=== PATIENT | female | born 1980 | race American Indian/Alaskan Native ===

== ENCOUNTER 2018-08-30 10:06 | Inpatient (IN) | payer OTHER ==
--- NOTE | 2018-08-30 10:30 | C.PDOC ---
History Of Present Illness 38 year old female presents to ED with complaint of persistent hemorrhoid pain for the past 2 weeks. Patient denies bleeding, bloody stools, or constipation. PERSIST HEMORRHOID PAIN X 2 WEEKS. NO BLEED. NO OTHER ASSOC SX EXAM RECTAL DEFERRED DR MARCANO REMAINDER NEG MDM FOR HEMORRHOIDECTOMY DR MARCANO TODAY. PER REFERRAL NOTE, ADMIT TO DR MARCANO Time Seen by Provider: 08/30/18 10:24 Chief Complaint (Nursing): Medical Clearance History Per: Patient History/Exam Limitations: no limitations Onset/Duration Of Symptoms: Other (2 weeks) Current Symptoms Are (Timing): Still Present Past Medical History Reviewed: Historical Data, Nursing Documentation, Vital Signs Vital Signs: Last Vital Signs Temp 98.3 F 08/30/18 10:18 Pulse 79 08/30/18 10:18 Resp 20 08/30/18 10:18 BP 120/74 08/30/18 10:18 Pulse Ox 100 08/30/18 10:18 Primary Care Provider: Ryley Marcano - Medical History PMH: No Chronic Diseases Surgical History: No Surg Hx Family History: States: Unknown Family Hx - Social History Hx Alcohol Use: No Hx Substance Use: No - Immunization History Hx Tetanus Toxoid Vaccination: No Hx Influenza Vaccination: No Hx Pneumococcal Vaccination: No Review Of Systems Except As Marked, All Systems Reviewed And Found Negative. Gastrointestinal: Positive for: Rectal Pain (hemorrhoid pain) Physical Exam - Physical Exam Appears: Well, Non-toxic, No Acute Distress Skin: Normal Color, Warm, Dry Head: Atraumatic, Normacephalic Eye(s): bilateral: Normal Inspection, PERRL, EOMI Neck: Normal ROM, Supple Chest: Symmetrical, No Deformity Cardiovascular: Rhythm Regular, No Murmur Respiratory: No Accessory Muscle Use, No Rales, No Rhonchi, No Wheezing Gastrointestinal/Abdominal: Soft, No Tenderness, No Distention, No Guarding, No Rebound Rectal: Deferred () Extremity: Capillary Refill (<2 seconds) Extremity: Bilateral: Atraumatic, Normal Color And Temperature, Normal ROM Pulses: Left Radial: Normal, Right Radial: Normal Neurological/Psych: Oriented x3, Normal Speech, Normal Cognition ED Course And Treatment - Laboratory Results Result Diagrams: 08/30/18 10:59 08/30/18 10:59 ECG: Interpreted By Me, Viewed By Me ECG Rhythm: Sinus Rhythm ECG Interpretation: Normal Rate From EC O2 Sat by Pulse Oximetry: 100 (in RA) Pulse Ox Interpretation: Normal - Radiology CXR: Interpreted by Me, Viewed By Me CXR Interpretation: Yes: No Acute Disease Nexus Criteria: Negative Progress Note: Type and screen, CMP, CBC, U-preg, and UA ordered for patient. EKG and CXR ordered for patient. Patient given IV fluids. Medical Decision Making Medical Decision Making: Patient to be admitted for hemorrhoidectomy today by . Per referral note, patient to be admitted to Dr. Marcano. Disposition Counseled Patient/Family Regarding: Studies Performed, Diagnosis - Disposition Disposition: HOSPITALIZED Disposition Time: 10:25 Condition: STABLE - Clinical Impression Clinical Impression: Hemorrhoids - Scribe Statement The provider has reviewed the documentation as recorded by the Scribe (Shelia Thayer) All medical record entries made by the Scribe were at my direction and personally dictated by me. I have reviewed the chart and agree that the record accurately reflects my personal performance of the history, physical exam, medical decision making, and the department course for this patient. I have also personally directed, reviewed, and agree with the discharge instructions and disposition.
[2018-08-30] MEDS ORDERED: Sodium Chloride 0.9% 1,000 ML IV ONE (10:31)
[2018-08-30] MEDS ORDERED: Sodium Chloride 0.9% 1,000 ML ONE (11:04)
[2018-08-30 11:07] LABS: BASO % 1.2 % (0.0-2.0); EOS # 0.1 K/uL (0.0-0.7); EOS % 2.2 % (0.0-4.0); HEMOGLOBIN 14.7 g/dL (11.0-16.0); LYMPH % 50.9 % (20.0-40.0); MEAN CELL VOLUME 91.5 fL (81.0-99.0); MEAN CORPUSCULAR HEMOGLOBIN 31.5 pg (27.0-31.0); MEAN CORPUSCULAR HGB CONC 34.4 g/dL (33.0-37.0); MEAN PLATELET VOLUME 8.5 fL (7.2-11.7); MONO # 0.5 K/uL (0.0-0.8); MONO % 12.9 % (0.0-10.0); NEUT # 1.3 K/uL (1.8-7.0); NEUT % 32.8 % (50.0-75.0); NRBC % 0.1 % (0.0-2.0); RBC 4.66 Mil/uL (3.80-5.20); RED CELL DISTRIBUTION WIDTH 12.7 % (11.5-14.5); WHITE BLOOD COUNT 3.9 K/uL (4.8-10.8)
[2018-08-30 11:10] LABS: HCG,QUALITATIVE URINE NEGATIVE (NEGATIVE)
[2018-08-30 11:14] LABS: INR 1.1; PARTIAL THROMBOPLASTIN TIME 28.7 SECONDS (21-34)
[2018-08-30 11:19] LABS: ALB/GLOB RATIO 1.2 (1.0-2.1); ALBUMIN 4.5 g/dL (3.5-5.0); BLOOD UREA NITROGEN 10 mg/dL (7-17); CALCIUM 9.4 mg/dl (8.6-10.4); GFR NON-AFRICAN AMERICAN > 60
[2018-08-30 11:20] LABS: SQUAMOUS EPITHIAL 1 /hpf (0-5); URINE BILIRUBIN NEGATIVE (NEGATIVE); URINE BLOOD 1+ (NEGATIVE); URINE CLARITY Clear (Clear); URINE COLOR Yellow (YELLOW); URINE GLUCOSE (UA) NORMAL (Normal); URINE LEUKOCYTE ESTERASE NEG Leu/uL (Negative); URINE PROTEIN NEGATIVE (NEGATIVE)
[2018-08-30 11:21] LABS: ALT/SGPT 10 U/L (9-52); AST/SGOT 22 U/L (14-36)
--- NOTE | 2018-08-30 11:33 | RAD ---
HISTORY: PREOP COMPARISON: None available TECHNIQUE: Chest PA and lateral, 2 views FINDINGS: LUNGS: No focal consolidation. Please note that chest x-ray has limited sensitivity for the detection of pulmonary masses. PLEURA: No significant pleural effusion identified. No definite pneumothorax . CARDIOVASCULAR: The cardiomediastinal silhouette appears within normal limits of size. No atherosclerotic calcification present. OSSEOUS STRUCTURES: No acute osseous abnormality identified. VISUALIZED UPPER ABDOMEN: Unremarkable. OTHER FINDINGS: None. IMPRESSION: No acute findings.
[2018-08-30] MEDS ORDERED: Bupivacaine 0.25% 20 ML INJ IJ ONE (15:11)
[2018-08-30] MEDS ORDERED: ceFAZolin 1 gm in NS 1 GM/100 ML BAG IVPB ONE (15:11)
[2018-08-30] MEDS ORDERED: Midazolam 2 MG/2 ML VIAL ONE (15:21)
[2018-08-30] MEDS ORDERED: Propofol 10 mg/ml Inj (20 ML) ONE (15:21)
[2018-08-30] MEDS ORDERED: Absorbable Gelatin Sponge Size 100 ONE (15:53)
[2018-08-30 17:53] VITALS: RESP 20
[2018-08-30] MEDS: Dextrose 5%/0.45% NS 1,000 ML IV SCH (20:03)
[2018-08-30] MEDS: Oxycodone/Acetaminophen 5/325 mg Tab PO PRN (20:17)
[2018-08-31] MEDS: Oxycodone/Acetaminophen 5/325 mg Tab PO PRN (01:19)
[2018-08-31] MEDS: Lactated Ringer's 1,000 ML IV SCH ×2 (02:15→11:52)
--- NOTE | 2018-08-31 06:57 | OP ---
PROCEDURE DATE: 08/30/2018 PREOPERATIVE DIAGNOSIS: Thrombosed, prolapsed bleeding hemorrhoids. POSTOPERATIVE DIAGNOSIS: Thrombosed, prolapsed bleeding hemorrhoids. PROCEDURE PERFORMED: 1. Complex hemorrhoidectomy. 2. Full-thickness transanal excision of rectal polyp with advancement flap closure. 3. Repair of rectal blood vessel. SURGEON: Ryley Boss MD ANESTHESIA: General. BLOOD LOSS: 40 mL. POSTOPERATIVE CONDITION: Stable. INDICATIONS FOR SURGERY: This is a 38-year-old female who presented to emergency room today with severe rectal pain, bleeding, and prolapsed ulcerated hemorrhoids. She is now taken to the operating room for emergency hemorrhoidectomy. DESCRIPTION OF PROCEDURE: The patient was taken to the operating room. General anesthesia was administered. She was placed in the prone jackknife position with the buttocks taped open. The rectal area was prepped and draped. An anoscopy was performed which revealed a complex right anterior hemorrhoid bundle which was ulcerated and prolapsed and actively bleeding. There was also a smaller bundle posteriorly. This was associated with a polyp just above the dentate line. The large complex right anterior hemorrhoid was grasped with a hemorrhoid clamp and ligated at its base with a heavy Monocryl suture. Generous elliptical incision was made completely surrounding the hemorrhoid and onto the anal skin. The hemorrhoid was dissected free and removed. Bleeding was controlled using the Bovie. The wound was repaired with double layer of a running heavy Monocryl suture. The above was repeated with the smaller hemorrhoid in the in the posterior quadrant. The polyp was then grasped with a adam clamp and a full-thickness excision was performed into the muscle. Bleeding was controlled using the Bovie. Tissue flaps were raised. Counter incisions were made and advancement flap closure was performed with heavy Monocryl, totaling 20 sq cm. During this resection, there was noted to be a pudendal blood vessel which was bleeding, it was mobilized and repaired with Prolene and blood flow confirmed by Doppler. The patient tolerated the procedure well. The anal canal was then packed with Gelfoam and an anal block of 0.25% Marcaine was placed. The patient tolerated the procedure well. Returned to recovery room in stable condition. Ryley Boss MD
[2018-08-31 07:36] VITALS: BP 127/79; PULSE 65; TEMP 98.3; O2SAT 98
[2018-08-31 08:10] LABS: BASO % 0.3 % (0.0-2.0); EOS # 0.1 K/uL (0.0-0.7); EOS % 0.8 % (0.0-4.0); HEMOGLOBIN 13.7 g/dL (11.0-16.0); LYMPH # 1.6 K/uL (1.0-4.3); LYMPH % 25.9 % (20.0-40.0); MEAN CELL VOLUME 90.7 fL (81.0-99.0); MEAN CORPUSCULAR HGB CONC 35.3 g/dL (33.0-37.0); MEAN PLATELET VOLUME 8.7 fL (7.2-11.7); MONO # 0.5 K/uL (0.0-0.8); MONO % 7.9 % (0.0-10.0); NEUT # 3.9 K/uL (1.8-7.0); NEUT % 65.1 % (50.0-75.0); RBC 4.27 Mil/uL (3.80-5.20); RED CELL DISTRIBUTION WIDTH 12.3 % (11.5-14.5)
[2018-08-31 08:23] LABS: ALB/GLOB RATIO 1.3 (1.0-2.1); ALBUMIN 4.1 g/dL (3.5-5.0); ALT/SGPT 17 U/L (9-52); AST/SGOT 28 U/L (14-36); BLOOD UREA NITROGEN 8 mg/dL (7-17); CALCIUM 8.8 mg/dl (8.6-10.4); GFR NON-AFRICAN AMERICAN > 60
[2018-08-31] MEDS: Dextrose 5%/0.45% NS 1,000 ML IV SCH (08:51)
[2018-08-31] MEDS ORDERED: Pneumococcal 23-Valent Vaccine IM ONE ×2 (10:00→12:00)
--- NOTE | 2018-09-01 14:24 | CARD ---
APPROVED REPORT Date of service: 08/30/2018 EKG Measurement Heart [id number] <Conclusion> Normal sinus rhythm Normal ECG
== END 2018-08-31 14:59 | disposition home or self-care (01) | DRG 158 ==
LOC: C.ER 10:06 → C.3T 10:41 → OBSVTOIN 16:08
PROVIDERS: ADMIT Surgery; ATTEND Surgery
PROC: 0DBQ8ZZ Excision of Anus, Via Natural or Artificial Opening Endoscopic (ICD-10-PCS; 2018-08-30)
PROC: 06BY4ZC Excision of Hemorrhoidal Plexus, Percutaneous Endoscopic Approach (ICD-10-PCS; principal; 2018-08-30 15:15)
DX: K64.8 Other hemorrhoids (principal); K62.1 Rectal polyp